=== PATIENT | male | born 1945 | race Two or more races ===

== ENCOUNTER 2019-02-09 08:00 | Outpatient (CLI) | payer MEDICARE, OTHER ==
[2019-02-09 12:27] LABS: BASOPHILS % (AUTO) 0.5 %; EOSINOPHILS # (AUTO) 0.1 10^3/uL (0.0-0.7); EOSINOPHILS % (AUTO) 1.8 %; HGB - HEMOGLOBIN 14.2 g/dL (14.0-18.0); LYMPHOCYTES # (AUTO) 1.1 10^3/uL (1.5-3.5); LYMPHOCYTES % (AUTO) 26.7 %; MEAN CORPUSCULAR HEMOGLOBIN 28.9 pg (27.0-31.0); MEAN CORPUSCULAR HGB CONC 33.2 g/dL (32.0-36.0); MEAN CORPUSCULAR VOLUME 87.1 fL (80.0-94.0); MONOCYTES # (AUTO) 0.5 10^3/uL (0.0-1.0); MONOCYTES % (AUTO) 11.4 %; NEUTROPHILS # (AUTO) 2.5 10^3/uL (1.5-6.6); NEUTROPHILS % (AUTO) 59.6 %; PLT - PLATELET COUNT 162 10^3/uL (130-450); RED BLOOD COUNT 4.92 10^6/uL (4.70-6.10); RED CELL DISTRIBUTION WIDTH 13.8 % (12.0-15.0); WHITE BLOOD COUNT 4.2 x10^3/uL (4.8-10.8)
[2019-02-09 12:55] LABS: ALBUMIN 3.7 g/dL (3.2-5.5); ALBUMIN/GLOBULIN RATIO 0.9 (1.0-2.2); ALKALINE PHOSPHATASE 54 IU/L (42-121); ALT ALANINE AMINOTRANSFERASE 40 IU/L (10-60); AST ASPARTATE AMINOTRANSFERASE 46 IU/L (10-42); BUN - BLOOD UREA NITROGEN 23 mg/dL (6-20); CALCIUM 9.2 mg/dL (8.5-10.3); CARBON DIOXIDE - CO2 30 mmol/L (21-32); CHLORIDE 100 mmol/L (101-111); CHOL/HDL RATIO 4.3 (<5.0); CHOLESTEROL 160 mg/dL; CREATININE 0.9 mg/dL (0.6-1.2); GFR - MDRD 82 (>89); GLUCOSE 150 mg/dL (70-100); HDL CHOLESTEROL 37 mg/dL; LDL CHOLESTEROL,CALCULATED 91 mg/dL; LDL/HDL RATIO 2.5 (<3.6); SODIUM 140 mmol/L (135-145); TOTAL PROTEIN 7.7 g/dL (6.7-8.2); VLDL CHOLESTEROL 32 mg/dL
[2019-02-09 13:11] LABS: HB2 TOTAL 15.5 g/dL; HEMOGLOBIN A1C 0.85 g/dL; HEMOGLOBIN A1C % 7.2 % (4.6-6.2)
== END 2019-02-09 23:59 | disposition home or self-care (01) ==
LOC: LAB.WCP 08:00
PROVIDERS: ATTEND Nurse Practitioner
DX: E11.9 Type 2 diabetes mellitus without complications (principal); E78.5 Hyperlipidemia, unspecified; I10 Essential (primary) hypertension
CPT/HCPCS: 36415; 80053; 80061; 83036; 83721; 84443; 85025

== ENCOUNTER 2019-06-03 17:13 | Outpatient (CLI) | payer MEDICARE, OTHER ==
--- NOTE | 2019-06-05 07:51 | Ultrasound Report ---
Reason: RT INGUINAL HERNIA Procedure Date: 06/03/2019 Accession Number: [id number] / [id number] Procedure: US - Pelvic Limited or F/U CPT Code: FULL RESULT: EXAM: INGUINAL ULTRASOUND EXAM DATE: 06/03/2019 06:20 PM. CLINICAL HISTORY: Right inguinal bulge. COMPARISON: None. TECHNIQUE: Real-time sonographic imaging of the inguinal canals and vascular structures, including color-flow, was performed by the powerhouse engineer. Multiple product support sales representative static images were saved for review. FINDINGS: Hernia: No hernia identified with or without Valsalva. Soft Tissues: A simple fluid collection with concave margins noted in the right inguinal region, possibly within the underlying peritoneal cavity measures 1.5 x 0.8 x 1.1 cm. It may represent a small quantity of trapped free fluid or collapsing cyst. No solid masses identified. Visualized vasculature are within normal limits. Other: None. IMPRESSION: Small trapped simple free fluid versus collapsing cyst in the anterior right inguinal peritoneal cavity but no clare hernia or mass lesion. Options for further evaluation include sonographic follow-up to ensure stability or resolution versus CT. RADIA
== END 2019-06-03 17:14 | disposition home or self-care (01) ==
LOC: DI 17:13
PROVIDERS: ATTEND Nurse Practitioner
DX: R93.5 Abnormal findings on diagnostic imaging of other abdominal regions, including retroperitoneum (principal)
CPT/HCPCS: 76857

== ENCOUNTER 2019-06-13 11:24 | Outpatient (CLI) | payer MEDICARE, OTHER | END 2019-06-13 11:25 | disposition home or self-care (01) | LOC: RT 11:24 | PROVIDERS: ATTEND Internal Medicine Gastroenterology | DX: I10 Essential (primary) hypertension (principal); E11.9 Type 2 diabetes mellitus without complications | CPT/HCPCS: 93005 ==

== ENCOUNTER 2019-06-15 07:14 | Day surgery (SDC) | payer MEDICARE, OTHER ==
[~2019-06-15 07:14] MED LIST: BUPIVACAINE 0.5%-EPI 1:200000 PF 30 ML VIAL ONE; CEFAZOLIN SODIUM IN 0.9 % NACL 2 GM/100 ML BAG IV ONE; LIDOCAINE-MPF 1% 30 ML VIAL ONE; ceFAZolin 1 GM VIAL ONE
[2019-06-15] MEDS ORDERED: fentaNYL 100 MCG/2 ML VIAL IVP ONE (07:15)
[2019-06-15] MEDS ORDERED: PROPOFOL 200 MG/20 ML VIAL IVP ONE (07:15)
[2019-06-15] MEDS ORDERED: LACTATED RINGERS 1,000 ML IV ONE (07:21)
--- NOTE | 2019-06-15 08:20 | ANESTHESIA ---
Pre-Anesthesia VS, & Labs - Diagnosis right inguinal hernia - Procedure right IHR Vital Signs: Temp Pulse Resp BP Pulse Ox 36 C L 63 16 156/78 H 100 06/15/19 07:21 06/15/19 07:21 06/15/19 07:21 06/15/19 07:21 06/15/19 07:21 Height 5 ft 10 in Weight (kg) 77.7 kg - NPO Last Fluid Intake: Black coffee 4oz at 0500 - Lab Results Current Lab Results: Laboratory Tests 06/15/19 07:54: POC Whole Bld Glucose 132 H Home Medications and Allergies Home Medications: Ambulatory Orders Cyanocobalamin (Vitamin B-12) [Vitamin B-12] 1,000 mcg PO DAILY 06/12/19 Glimepiride [Amaryl] 1 mg PO BID 06/12/19 Krill/Om-3/Dha/Epa/Phospho/Ast [Krill Oil 500 mg Softgel] 1 each PO ONCE 06/12/19 Levothyroxine Sodium 50 mcg PO DAILY 06/12/19 Lisinopril 20 mg PO DAILY 06/12/19 Meloxicam 7.5 mg PO BID PRN 06/12/19 Multivitamin [Daily Multiple Vitamin] 1 each PO DAILY 06/12/19 Simvastatin 40 mg PO DAILY 06/12/19 Vitamin E 400 unit PO DAILY 06/12/19 hydroCHLOROthiazide [Hydrochlorothiazide] 25 mg PO DAILY 06/12/19 metFORMIN [Glucophage] 500 mg PO TIDWM 06/12/19 Cyanocobalamin (Vitamin B-12) [Vitamin B-12] 1,000 mcg PO DAILY 06/12/19 Glimepiride [Amaryl] 1 mg PO BID 06/12/19 Krill/Om-3/Dha/Epa/Phospho/Ast [Krill Oil 500 mg Softgel] 1 each PO ONCE 06/12/19 Levothyroxine Sodium 50 mcg PO DAILY 06/12/19 Lisinopril 20 mg PO DAILY 06/12/19 Meloxicam 7.5 mg PO BID PRN 06/12/19 Multivitamin [Daily Multiple Vitamin] 1 each PO DAILY 06/12/19 Simvastatin 40 mg PO DAILY 06/12/19 Vitamin E 400 unit PO DAILY 06/12/19 hydroCHLOROthiazide [Hydrochlorothiazide] 25 mg PO DAILY 06/12/19 metFORMIN [Glucophage] 500 mg PO TIDWM 06/12/19 Allergies/Adverse Reactions: Allergies Allergy/AdvReac Type Severity Reaction Status Date / Time No Known Drug Allergies Allergy Verified 06/12/19 09:18 Anes History & Medical History - Anesthetic History Anesthesia Complications: reports: No previous complications - Medical History Cardiovascular: reports: Hypertension, High cholesterol Pulmonary: reports: Sleep apnea (resolved after UPP) Gastrointestinal: reports: None Urinary: reports: Benign prostate hypertrophy Neuro: reports: None Musculoskeletal: reports: None Endocrine/Autoimmune: reports: Type 2 diabetes, HyPOthyroidism Blood Disorders: reports: None Skin: reports: None Smoking Status: Former smoker (quit 1995) - Surgical History General: Appendectomy, Colonoscopy, Other Eyes Ears Nose Throat (EENT): Other (UPPP) Orthopedic: Spine surgery, Other Exam General: Alert, Oriented x3, Cooperative, No acute distress Dental: WNL Mouth Openin Fingerbreadth Neck Mobility: Normal Mallampati classification: II Thyromental Distance: greater than 6 cm Respiratory: Lungs clear, Normal breath sounds, No respiratory distress, No accessory muscle use Cardiovascular: Regular rate, Normal S1, Normal S2, No murmurs Mental/Cognitive Status: Alert/Oriented X3, Normal for patient Plan Anesthesia Type: MAC Consent for Procedure(s) Verified and Reviewed: Yes Code Status: Attempt Resuscitation ASA classification: 2-Mild systemic disease Is this case an emergency?: No
[2019-06-15] MEDS ORDERED: ACETAMINOPHEN 325 MG TABLET PO PRN (10:08)
[2019-06-15] MEDS ORDERED: IBUPROFEN 600 MG TABLET PO PRN (10:08)
[2019-06-15] MEDS ORDERED: oxyCODONE 5 MG TABLET PO PRN (10:08)
[2019-06-15] MEDS ORDERED: ONDANSETRON 4 MG/2 ML VIAL IVP PRN (10:08)
[2019-06-15 10:57] VITALS: BP 139/77
--- NOTE | 2019-06-15 10:59 | OPERATIVE REPORT ---
DATE OF SERVICE: 06/15/2019 Physician: Harinder Martinez MD PREOPERATIVE DIAGNOSIS: Symptomatic right inguinal hernia. POSTOPERATIVE DIAGNOSES 1. Symptomatic right inguinal hernia. 2. Spermatic Cord lipoma. PROCEDURE PERFORMED 1. Open repair of sliding indirect right inguinal hernia with polypropylene mesh. 2. Excision of spermatic cord lipoma. ANESTHESIA: Local plus monitored anesthesia care by Rita Bueno CRNA. SURGEON: Harinder Martinez MD ESTIMATED BLOOD LOSS: 5 mL COMPLICATIONS: None. DRAINS: None. FINDINGS: A small indirect sliding right inguinal hernia was present with bladder comprising the sliding component. There was no evidence of direct or femoral hernia. A moderate sized fatty tumor consistent with a cord lipoma measuring 4 cm in diameter was present in the inguinal canal as well. INDICATIONS: Patient is a 73-year-old gentleman with recent onset of a painful right groin bulge. Evaluation revealed evidence of a reducible right inguinal hernia. He was advised to undergo repair. TECHNIQUE: After informed consent, patient was taken to the operating room where he was sedated and monitored. Preoperative preparation included application of sequential calf compression boots and administration of 2 grams cefazolin intravenously within an hour of the incision. His groin had been clipped in the ASU and was prepped with iodoform solution, following which a right groin block was instituted using a 50:50 combination of 1% lidocaine plain and 0.5% Marcaine with epinephrine. A total of 25 mL was used. The right groin was re-prepared with ChloraPrep solution and draped in the usual sterile fashion. A transverse incision was made in the skin lines of the right groin, extending laterally approximately 5 cm in length. Hemostasis achieved with electrocautery and 2-0 Vicryl ties. Incision carried down through subcutaneous tissues until the external oblique aponeurosis was identified, and was incised along the lines of its fibers in such a manner as to open the external ring and expose the internal ring. The spermatic cord was mobilized, encircled with a [place] drain. The search for the ilioinguinal nerve was made within the inguinal canal, but was not identified. The spermatic cord was carefully dissected, isolating the hernia sac and dissecting it free from surrounding structures at the level of the internal ring. It was opened and seen to have a significant sliding component. This was repaired by trimming the hernia sac away from the sliding component, which was then reduced and the resulting defect closed using a pursestring suture of 3-0 silk followed by a second 3-0 silk suture ligature. Excess hernia sac was amputated and discarded. Cord lipoma was mobilized free from surrounding cord structures using electrocautery for hemostasis. It was excised and discarded. After hemostasis was assured, the wound was irrigated with antibiotic solution containing 1 gram of Ancef per liter following which, a Bard expanded polypropylene medium weight precut slotted inguinal hernia patch was brought onto the field, placed in the antibiotic solution and then placed over the inguinal floor and secured in place circumferentially with continuous 3-0 Prolene sutures, securing the mesh to the shelving edge of Poupart's ligament inferiorly and to the internal oblique aponeurosis superolaterally and to the lateral border rectus sheath medially. Care was taken to avoid excessive tightening of the patch around the cord at the level of the internal ring. After hemostasis was assured, the wound was again irrigated with antibiotic solution, following which wound closure was accomplished in layers using continuous 2-0 Vicryl, reapproximating the external oblique aponeurosis overlying the cord, followed by 3-0 Vicryl for Gabbi's fascia and 4-0 Monocryl subcuticular skin closure, followed by Dermabond. The procedure was terminated and the patient was transferred out of the operating room in satisfactory condition. Sponge and needle counts were correct x2 and no drains were used. TD: 06/15/2019 10:21 TALYA
== END 2019-06-15 07:15 | disposition home or self-care (01) ==
LOC: SDS 07:14
PROVIDERS: ATTEND Internal Medicine Gastroenterology
PROC: 0VBF0ZZ Excision of Right Spermatic Cord, Open Approach (ICD-10-PCS; 2019-06-15)
PROC: 0YU50JZ Supplement Right Inguinal Region with Synthetic Substitute, Open Approach (ICD-10-PCS; principal; 2019-06-15 08:30)
DX: K40.90 Unilateral inguinal hernia, without obstruction or gangrene, not specified as recurrent (principal); D17.6 Benign lipomatous neoplasm of spermatic cord; E11.9 Type 2 diabetes mellitus without complications; I10 Essential (primary) hypertension; E03.9 Hypothyroidism, unspecified; N40.0 Benign prostatic hyperplasia without lower urinary tract symptoms; Z79.84 Long term (current) use of oral hypoglycemic drugs; Z87.891 Personal history of nicotine dependence
CPT/HCPCS: 49525; 55520; C1781; J0690; J7120